=== PATIENT | male | born 1970 | race Caucasian/White ===

== ENCOUNTER 2018-05-29 20:19 | Observation (INO) | payer OTHER ==
--- OUTSIDE RECORDS SUMMARY | 2018-05-29 20:44 | XMS REPORT ---
:1970 External Reference #:[id number] Author Organization [employer] Address [address] [place] [address] Phone [phone] Care Team Providers Name Role Phone Jacobo Elkins MD Primary Care Physician Unavailable Payers Type Date Identification Numbers Payment Provider Subscriber Commercial Expires: Policy Number: [id number] [employer] Reji Ailyn David 2018 Medicaid PayID: [id number] [address] [address] [place] [address] Commercial Policy Number: [id number] [employer] Reji Robertson David PayID: [id number] [address] [place] [address] Problems Date Description Provider Status Onset: 09/10/2010 Ulcerative colitis Jacobo Elkins M.D.,FACP Active Onset: 09/10/2010 Cobalamin deficiency Jacobo Elkins M.D.,FACCherelle Active Onset: 09/10/2010 Migraine with typical aura Jacobo Elkins M.D.,FACCherelle Active Onset: 05/23/2018 Knee pain Lamont Berrios M.D. Active Onset: 10/26/2017 Difficulty breathing Lamont Berrios M.D. Active Onset: 10/26/2017 Shoulder joint pain Lamont Berrios M.D. Active Onset: 10/26/2017 Ganglion of hand Lamont Berrios M.D. Active Onset: 10/11/2017 Gastroesophageal reflux disease Lamont Berrios M.D. Active Family History Date Family Member(s) Problem(s) Comments Father Prostate cancer Mother Colon Polyps and ilium polyps First Sister Colitis w/ colectomy First Sister Crohn's Disease Social History Type Date Description Comments Marital Status Significant Other Lives With Alone Occupation Currently Working [employer] Work Status Currently Working Cigarette Use currently smokes 1/2 Pack Daily ETOH Use Drinks 1 Alcoholic Beverage Per Day Recreational Drug Use Denies Drug Use Smoking Patient is a former smoker Daily Caffeine Consumes on average 1 cup of regular coffee per day Daily Caffeine works for [employer], has excess 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 Exercise Type/Frequency Does not exercise Allergies, Adverse Reactions, Alerts Date Description Reaction Status Severity Comments 06/11/2009 Penicillins active Medications Medication Date Status Form Strength Qnty SIG Indications Ordering Provider Vitamin B12 TR Active Tablets ER 1000mcg 1 by Unknown 00 mouth every day No Active 10/12/19 Hx Unknown Medications 18 - 10/12/19 18 No Active 06/28/20 Hx Unknown Medications - 06/28/20 13 Vitamin B12 06/28/20 Hx Tablets 500mcg 1 po qd Jacobo Elkins, 10/12/19 MKrystian,FACP 18 Vitamin B12 07/27/19 Hx Tablets 500mcg 1 po qd Jacobo Elkins, 06/28/20 Concha,FACP 13 Immunizations CPT Code Status Date Vaccine Lot # [id number] Given 09/10/2010 Tdap - Tetanus/Diptheria/Acellular Pertussis [id number] Vital Signs Date Vital Result Comment 05/28/2018 Height 73 inches 6'1" Weight 170.25 lb Heart Rate 105 /min BP Systolic 110 mmHg BP Diastolic 70 mmHg Body Temperature 99.8 F O2 % BldC Oximetry 96 % BMI (Body Mass Index) 22.5 kg/m2 05/23/2018 Height 73 inches 6'1" Weight 177.00 lb Heart Rate 80 /min BP Systolic Sitting 115 mmHg BP Diastolic Sitting 70 mmHg O2 % BldC Oximetry 96 % BMI (Body Mass Index) 23.3 kg/m2 01/08/2018 Height 73 inches 6'1" Weight 175.00 lb BP Systolic 110 mmHg BP Diastolic 76 mmHg Body Temperature 100.8 F BMI (Body Mass Index) 23.1 kg/m2 12/04/2017 Height 73.5 inches 6'1.50" BP Systolic 116 mmHg BP Diastolic 70 mmHg Respiratory Rate 20 /min Body Temperature 97.8 F Pain Level 3 10/26/2017 Height 73.5 inches 6'1.50" Weight 175.25 lb Heart Rate 94 /min BP Systolic 110 mmHg BP Diastolic 60 mmHg O2 % BldC Oximetry 97 % BMI (Body Mass Index) 22.8 kg/m2 10/11/2017 Height 73.5 inches 6'1.50" Weight 172.50 lb Heart Rate 82 /min BP Systolic Sitting 130 mmHg BP Diastolic Sitting 78 mmHg O2 % BldC Oximetry 98 % BMI (Body Mass Index) 22.4 kg/m2 06/28/2013 Height 73.5 inches 6'1.50" Weight 162.00 lb Heart Rate 88 /min BP Systolic Sitting 106 mmHg BP Diastolic Sitting 72 mmHg BMI (Body Mass Index) 21.1 kg/m2 09/10/2010 Height 74 inches 6'2" Weight 163.00 lb Heart Rate 68 /min BP Systolic Sitting 96 mmHg BP Diastolic Sitting 64 mmHg BMI (Body Mass Index) 20.9 kg/m2 06/11/2009 Height 74 inches 6'2" Weight 171.75 lb Heart Rate 105 /min BP Systolic Sitting 117 mmHg BP Diastolic Sitting 70 mmHg Body Temperature 98.9 F BMI (Body Mass Index) 22.0 kg/m2 Results Test Date Test Result H/L Range Note Vitamin B12 And Folate Serum 05/23/2018 Vitamin B12 180 pg/mL 180-914 1 Folic Acid (Folate) 6.70 ng/mL >3.99 Order 12/05/2017 PFT <pending> W/Bronchodilator,Spirometry,Volumes Laboratory 10/23/2017 [place] Pylori Antigen- Stool Negative Negative 2 test finding Lipid Profile 10/20/2017 Triglycerides 62 mg/dL 3 (Trig/Chol/HD L) Cholesterol 163 mg/dL 4 HDL Cholesterol 73.3 mg/dL 5 LDL Cholesterol 77 mg/dL 6 Comp Metabolic Panel 10/20/2017 Sodium 142 mmol/L 139-145 Potassium 4.3 mmol/L 3.5-5.0 Chloride 105 mmol/L 101-111 Co2 Carbon Dioxide 30 mmol/L 22-32 Anion Gap 7 mmol/L 2-11 Glucose 84 mg/dL 70-100 Blood Urea Nitrogen 10 mg/dL 6-24 Creatinine 0.98 mg/dL 0.67-1.17 BUN/Creatinine Ratio 10.2 8-20 Calcium 10.1 mg/dL 8.6-10.3 Total Protein 6.7 g/dL 6.4-8.9 Albumin 4.5 g/dL 3.2-5.2 Globulin 2.2 g/dL 2-4 Albumin/Globulin Ratio 2.0 1-3 Total Bilirubin 0.60 mg/dL 0.2-1.0 Alkaline Phosphatase 106 U/L High 34-104 Alt 17 U/L 7-52 Ast 16 U/L 13-39 Egfr Non- 82.0 >60 Egfr 105.4 >60 7 Laboratory test finding 10/20/2017 PSA Screening 0.471 ng/mL 0-4.000 8 Folic Acid (Folate) 9.14 ng/mL >3.99 Vitamin B12 295 pg/mL 180-914 9 Lipid Profile (Trig/Chol/HDL) 07/23/2013 Triglycerides 109 mg/dL 40-200 Cholesterol 211 mg/dL High Less than 200 HDL Cholesterol 109 mg/dL High 40-60 10 Cholesterol/HDL Ratio 1.9 Average 1-4.44 LDL Cholesterol 80.2 Less Than 100 11 Laboratory test finding 07/23/2013 Glucose 79 mg/dL 70-100 12 Vitamin B12 And Folate Serum 07/23/2013 Vitamin B12 182 pg/mL 180-914 13 Folate 14.0 ng/mL 2-16 14 CBC Auto Diff 07/23/2013 White Blood Count 5.2 10^3/uL 4.8-10.8 Red Blood Count 4.74 10^6/uL 4.0-5.4 Hemoglobin 15.4 g/dL 14.0-18.0 Hematocrit 45 % 42-52 Mean Corpuscular Volume 96 fL High 80-94 Mean Corpuscular Hemoglobin 33 pg High 27-31 Mean Corpuscular HGB Conc 34 g/dL 31-36 Red Cell Distribution Width 14 % 10.5-15 Platelet Count 284 10^3/uL 150-450 Mean Platelet Volume 8 um3 7.4-10.4 Abs Neutrophils 1.9 10^3/uL 1.5-7.7 Abs Lymphocytes 2.5 10^3/uL 1.0-4.8 Abs Monocytes 0.6 10^3/uL 0-0.8 Abs Eosinophils 0.1 10^3/uL 0-0.6 Abs Basophils 0.1 10^3/uL 0-0.2 Abs Nucleated RBC 0 10^3/uL Granulocyte % 36.2 % Low 38-83 Lymphocyte % 47.7 % High 25-47 Monocyte % 11.4 % High 1-9 Eosinophil % 2.5 % 0-6 Basophil % 2.2 % High 0-2 Nucleated Red Blood Cells % 0.1 Cell Morphology 07/23/2013 RBC Morphology Normal Normal Vitamin B12 And Folate Serum 07/22/2010 Vitamin B12 132 pg/mL Low 180-914 Folic Acid 9.6 NG/ML 2-16 CBC With Electronic Diff 07/22/2010 White Blood Count 4.6 CUMM Low 4.8- 10.8 Red Cell Count 4.53 CUMM Low 4.6-6.2 Hemoglobin 14.9 g/dL 14.0-18.0 Hematocrit 43 % 42-52 Mean Corpuscular Volume 96 um3 High 80-94 Mean Corpuscular Hemoglob 33 pg High 27-31 Mean Corpuscular HGB Cone 35 g/dL 32-36 Redcell Distribution WDTH 14 % 10.5-15 Platelet Count 291 CUMM 150-450 Mean Platelet Volume 7.1 um3 Low 7.4-10.4 Gran % 43.9 % 38-83 Lymph % 43.1 % 25-47 Mononuclear % 10.2 % High 1-9 Eosinophil % 1.7 % 0-6 Basophil % 1.1 % 0-2 Abs Lymphs 2.0 1.0-4.8 Abs Mononuclear 0.5 0-0.8 Absolute Neutrophil Count 2.0 1.5-7.7 Abs Eosinophils 0.1 0-0.6 Abs Basophils 0 0-0.2 Lipid Profile (Trig/Chol/HDL) 07/22/2010 Triglyceride 23 mg/dL Low 40-200 Cholesterol 195 mg/dL Less Than 200 15 High Density Lipoprotein 115 mg/dL High 40-60 16 Cholesterol/HDL Ratio 1.70 AVERAGE 1-4.97 Low Density Lipoprotein 75 mg/dL Less Than 100 17 Comp Metabolic Panel 07/22/2010 Sodium 138 mmol/L 135-145 Potassium 4.6 mmol/L 3.5-5.0 Chloride 103 mmol/L 101-111 Co2 (Carbon Dioxide) 30.0 mmol/L 22-32 Anion Gap 5.0 mmol/L 2-11 18 Glucose 86 mg/dL 70-100 BUN 14 mg/dL 6-24 Creatinine 0.90 mg/dL 0.50-1.40 One Over Creatinine 1.10 BUN/Creatinine Ratio 15.6 8-20 Calcium 9.7 mg/dL 8.1-9.9 Total Protein 6.5 GM/DL 6.2-8.1 Albumin 4.3 GM/DL 3.6-5.4 Globulin 2.2 GM/DL 2-4 Albumin/Globulin Ratio 2.0 1-3 Bilirubin Total 0.9 mg/dL 0.4-1.5 19 Alkaline Phosphatase 116 U/L 39-117 Alt (SGPT) 22 U/L 17-63 Ast (Sgot) 23 U/L 12-42 eGFR Non- 99.8 > 60 eGFR 120.8 > [address] Rivera's Lab Panel 07/22/2010 TSH 1.02 MIU/ML 0.34-5.60 Surgical Pathology 05/07/2010 Surgical Pathology 21 <SEE NOTE> Basic Metabolic Panel 07/27/2009 Sodium 138 mmol/L 135-145 Potassium 4.7 mmol/L 3.5-5.0 Chloride 104 mmol/L 101-111 Co2 (Carbon Dioxide) 29.0 mmol/L 22-32 Anion Gap 5.0 mmol/L 2-11 22 Glucose 86 mg/dL 70-100 23 BUN 11 mg/dL 6-24 Creatinine 0.93 mg/dL 0.50-1.40 One Over Creatinine 1.00 BUN/Creatinine Ratio 11.8 8-20 Calcium 9.8 mg/dL 8.1-9.9 24 eGFR Non- 96.6 > 60 eGFR 116.9 > 60 25 Lipid Profile (Trig/Chol/HDL) 07/27/2009 Triglyceride 59 mg/dL 40-200 Cholesterol 176 mg/dL Less Than 200 26 High Density Lipoprotein 78 mg/dL High 40-60 27 Cholesterol/HDL Ratio 2.26 AVERAGE 1-4.97 Low Density Lipoprotein 86 mg/dL Less Than 100 28 1 Normal Range 180 to 914 Indeterminate Range 145 to 180 Deficient Range <145 2 Test Performed by: [address] [id number] 3 Desirable: <150 Borderline High: 150-199 High: 200-499 Very High: >500 4 Desirable: <200 Borderline High: 200-239 High: >239 5 Low: <40 Desirable: 40-60 High: >60 6 Desirable: <100 Near Optimal: 100-129 Borderline High: 130-159 High: 160-189 Very High: >189 7 Because ethnic data is not always readily available, this report includes an eGFR for both -Americans and non- Americans. The National Kidney Disease Education Program (NKDEP) does not endorse the use of the MDRD equation for patients that are not between the ages of 18 and 70, are , have extremes of body size, muscle mass, or nutritional status, or are non- or non-. According to the National Kidney Foundation, irrespective of diagnosis, the stage of the disease is based on the level of kidney function: Stage Description GFR(mL/min/1.73 m(2)) 1 Kidney damage with normal or decreased GFR 90 2 Kidney damage with mild decrease in GFR 60-89 3 Moderate decrease in GFR 30-59 4 Severe decrease in GFR 15-29 5 Kidney failure <15 (or dialysis) 8 Serum levels of PSA measured using the [employer] DXI Hybritech immunoassay should not be interpreted as absolute evidence of the presence or absence of disease. The PSA value should be used in conjunction with other pertinent clinical diagnostic procedures. A PSA value in the range of 0.1 to 0.6 ng/ml is indeterminate if being used as an indicator of recurrent or residual disease. The values obtained with different assay methods or kits cannot be used interchangeably. 9 Normal Range 180 to 914 Indeterminate Range 145 to 180 Deficient Range <145 10 HDL Interpretation: Undesirable: High Risk: Less than 40 mg/dL Desirable: Low Risk: Greater than 60 mg/dL 11 LDL Interpretation: Low Risk Optimal Level: LDL Less than 100 mg/dL Near or Above Optimal: LDL 100-129 mg/dL Borderline High Risk: LDL 130-159 mg/dL High Risk: LDL 160-189 mg/dL Very High Risk: LDL Greater than 189 mg/dL 12 FASTING 13 FASTING 14 FASTING 15 CHOLESTEROL INTERPRETATION: Desirable: Less than 200 MG/DL Borderline-High Risk: 200-239 MG/DL High-Risk: 240 MG/DL and over 16 HDL INTERPRETATION: Undesirable: High Risk: Less than 40 MG/DL Desirable: Low Risk: Greater than 60 MG/DL 17 LDL INTERPRETATION: Low Risk Optimal Level: LDL Less than 100 MG/DL Near or Above Optimal: LDL 100-129 MG/DL Borderline High Risk: LDL 130-159 MG/DL High Risk: LDL 160-189 MG/DL Very High Risk: LDL Greater than 189 MG/DL 18 Anion gap measurement may be of limited value in the presence of any alkalosis, especially in a combined acid base disorder. . 19 A metabolite of Naproxen, O-desmethylnaproxen, has been shown to interfere with the Jendrassik-Odon method for measuring total bilirubin. Samples from patients who have taken Naproxen have shown spurious elevation in total bilirubin levels. 20 Because ethnic data is not always readily available, this report includes an eGFR for both -Americans and non- Americans. The National Kidney Disease Education Program (NKDEP) does not endorse the use of the MDRD equation for patients that are not between the ages of 18 and 70, are , have extremes of body size, muscle mass, or nutritional status, or are non- or non-. According to the National Kidney Foundation, irrespective of diagnosis, the stage of the disease is based on the level of kidney function: Stage Description GFR(mL/min/1.73 m(2)) 1 Kidney damage with normal or decreased GFR 90 2 Kidney damage with mild decrease in GFR 60-89 3 Moderate decrease in GFR 30-59 4 Severe decrease in GFR 15-29 5 Kidney failure <15 (or dialysis) 21 ---- RUN DATE: 05/11/10 [facility] NMI LIVE PAGE 1 RUN TIME: 1504 Specimen Inquiry RUN USER: INTERFACE -- Name: Jonah HERNANDEZ Status: REG REF Re05/07/10 Age/Sex: 39/M Unit#: [id number] [facility] -- Specimen: [id number] SOUT Spec Date: 05/07/[address]: Sebastian alvarez MD Spec Type: SURGICAL P Received: 05/10/10-1011 Copies to: Jacobo fitch MD SPECIMEN RECTAL BIOPSY HISTORY CLINICAL INFORMATION: Hematochezia GROSS DESCRIPTION The specimen is received in formalin labelled JonahJoe Ej David, Rectal Biopsy, and consists of multiple sanchez, soft tissue fragments measuring 0.5 x 0.2 x 0.2 cm. in aggregate. Submitted entirely, one cassette. DIAGNOSIS Colon, rectum, biopsy: A. Rectal mucosa with acute colitis with focal cryptitis and mild architectural disorder. B. A single minute insipient crypt abscess identified. C. No dysplasia noted. COMMENT The findings are not entirely specific but may be compatible with early chronic inflammatory bowel disease. Correlation with clinical and colonoscopic findings is suggested. Signed Electronically by: MORENO GUSMAN MD 05/11/10 1454 -- -- DEPARTMENT OF PATHOLOGY, [address] [place] [address] [facility] Permit #[id number] Moreno Gusman M.D. Director Jerrell Major M.D. Band Tacker Dir rohini -- 22 Anion gap measurement may be of limited value in the presence of any alkalosis, especially in a combined acid base disorder. . 23 Note change in reference range as of 03/13/08. The change was based on recommendations from the [place] [employer]. 24 Please note change in reference range effective 07 . 25 Because ethnic data is not always readily available, this report includes an eGFR for both -Americans and non- Americans. The National Kidney Disease Education Program (NKDEP) does not endorse the use of the MDRD equation for patients that are not between the ages of 18 and 70, are , have extremes of body size, muscle mass, or nutritional status, or are non- or non-. According to the National Kidney Foundation, irrespective of diagnosis, the stage of the disease is based on the level of kidney function: Stage Description GFR(mL/min/1.73 m(2)) 1 Kidney damage with normal or decreased GFR 90 2 Kidney damage with mild decrease in GFR 60-89 3 Moderate decrease in GFR 30-59 4 Severe decrease in GFR 15-29 5 Kidney failure <15 (or dialysis) 26 CHOLESTEROL INTERPRETATION: Desirable: Less than 200 MG/DL Borderline-High Risk: 200-239 MG/DL High-Risk: 240 MG/DL and over 27 HDL INTERPRETATION: Undesirable: High Risk: Less than 40 MG/DL Desirable: Low Risk: Greater than 60 MG/DL 28 LDL INTERPRETATION: Low Risk Optimal Level: LDL Less than 100 MG/DL Near or Above Optimal: LDL 100-129 MG/DL Borderline High Risk: LDL 130-159 MG/DL High Risk: LDL 160-189 MG/DL Very High Risk: LDL Greater than 189 MG/DL Procedures Date CPT Code Description Status 12/04/2017 93823 Plethysmography Determination Lung Volumes & Per Airway Completed Resist 12/04/2017 21297 Pulmonary Function><Bronchodil Completed 05/07/2010 Colonoscopy Completed Encounters Type Date Location Provider CPT E/M Dx Office Visit 01/08/2018 [facility] Tiffany Shay M.D. 26206 M25.511 10:15a Of [place] S46.011A Office Visit 12/04/2017 11:00a [facility] Tiffany Shay M.D. 37114 M25.511 VirgilioMCam S46.011A Office Visit 10/26/2017 11:20a [facility] Internal Lamont Berrios, 79163 M67.442 Medicine - [place] Titi Kern M25.511 R06.00 Office Visit 10/11/2017 2:00p [facility] Internal Medicine Lamont Berrios, 77463 D51.1 - Kiersten Kern K21.9 Z00.01 Z13.1 Z13.220 Z12.5 F17.210 Z00.00 Office Visit 06/28/2013 2:00p [facility] Internal Medicine Jacobo Elkins, 94360 V70.0 - Kiersten Kern,FACP 281.1 Office Visit 09/10/2010 2:00p DO Not Use Hand Upper And Bottom Lacer AT Jacobo Elkins, 44644 V70.0 Ferny Kern,FACP 556.9 281.1 346.00 Office Visit 06/11/2009 10:30a DO Not Use [place] [address] V77.91 [place] 780.97 Plan of Care Future Appointment(s):06/05/2019 2:00 pm - Lamont Berrios M.D. at [facility] Internal Medicine - Ascnriwwp52/05/2018 - Lamont Berrios M.D.J06.9 Acute upper respiratory infection, unspecifiedComments:Force fluids and get extra restIf the symptoms doesn't improve or if it gets worse to call.
--- OUTSIDE RECORDS SUMMARY | 2018-05-29 20:44 | XMS REPORT ---
:1970 External Reference #:[id number] Author Organization [employer] Address [address] [place] [address] Phone [phone] Care Team Providers Name Role Phone Jacobo Elkins MD Primary Care Physician Unavailable Payers Type Date Identification Numbers Payment Provider Subscriber Commercial Expires: Policy Number: [id number] Rivera[employer] Reji Ailyn David 2018 Medicaid PayID: [id number] [address] [address] [place] [address] Commercial Policy Number: [id number] [employer] Reji Robertson David PayID: [id number] [address] [place] [address] Problems Date Description Provider Status Onset: 09/10/2010 Ulcerative colitis Jacobo Elkins M.D.,FACP Active Onset: 09/10/2010 Cobalamin deficiency Jacobo Elkins M.D.,FACCherelle Active Onset: 09/10/2010 Migraine with typical aura Jacobo Elkins M.D.,FACP Active Onset: 05/23/2018 Knee pain Lamont Berrios [...] coffee per day Daily Caffeine 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 for [employer], 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 excess 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 Exercise Type/Frequency [...] 500mcg 1 po qd Jacobo Elkins, 10/12/19 Concha,FACP 18 Vitamin B12 07/27/19 Hx Tablets 500mcg 1 po qd Jacobo Elkins, 06/28/20 Concha,FACP 13 Immunizations CPT Code Status Date Vaccine Lot # [id number] Given 09/10/2010 Tdap - Tetanus/Diptheria/Acellular Pertussis [id number] Vital Signs Date Vital Result Comment 05/23/2018 Height 73 inches 6'1" Weight 177.00 [...] Test Date Test Result H/L Range Note Order 12/05/2017 PFT <pending> W/Bronchodilator,Spirome try,Volumes Laboratory test 10/23/2017 [place] Pylori Antigen- Negative Negative 1 finding Stool Lipid Profile 10/20/2017 Triglycerides 62 mg/dL 2 (Trig/Chol/HDL) Cholesterol 163 mg/dL 3 HDL Cholesterol 73.3 mg/dL 4 LDL Cholesterol 77 mg/dL 5 Comp Metabolic Panel 10/20/2017 Sodium 142 mmol/L [...] Egfr Non- 82.0 >60 Egfr 105.4 >60 6 Laboratory test finding 10/20/2017 PSA Screening 0.471 ng/mL 0-4.000 7 Folic Acid (Folate) 9.14 ng/mL >3.99 Vitamin B12 295 pg/mL 180-914 8 Lipid Profile (Trig/Chol/HDL) 07/23/2013 Triglycerides 109 mg/dL 40-200 Cholesterol 211 mg/dL High Less than 200 HDL Cholesterol 109 mg/dL High 40-60 9 Cholesterol/HDL Ratio 1.9 Average 1-4.44 LDL Cholesterol 80.2 Less Than 100 10 Laboratory test finding 07/23/2013 Glucose 79 mg/dL 70-100 11 Vitamin B12 And Folate Serum 07/23/2013 Vitamin B12 182 pg/mL 180-914 12 Folate 14.0 ng/mL 2-16 13 CBC Auto Diff 07/23/2013 White Blood Count [...] 40-200 Cholesterol 195 mg/dL Less Than 200 14 High Density Lipoprotein 115 mg/dL High 40-60 15 Cholesterol/HDL Ratio 1.70 AVERAGE 1-4.97 Low Density Lipoprotein 75 mg/dL Less Than 100 16 Comp Metabolic Panel 07/22/2010 Sodium 138 mmol/L 135-145 Potassium 4.6 mmol/L 3.5-5.0 Chloride 103 mmol/L 101-111 Co2 (Carbon Dioxide) 30.0 mmol/L 22-32 Anion Gap 5.0 mmol/L 2-11 17 Glucose 86 mg/dL 70-100 BUN 14 mg/dL 6-24 Creatinine 0.90 mg/dL 0.50-1.40 One Over Creatinine 1.10 BUN/Creatinine Ratio 15.6 8-20 Calcium 9.7 mg/dL 8.1-9.9 Total Protein 6.5 GM/DL 6.2-8.1 Albumin 4.3 GM/DL 3.6-5.4 Globulin 2.2 GM/DL 2-4 Albumin/Globulin Ratio 2.0 1-3 Bilirubin Total 0.9 mg/dL 0.4-1.5 18 Alkaline Phosphatase 116 U/L 39-117 Alt (SGPT) 22 U/L 17-63 Ast (Sgot) 23 U/L 12-42 eGFR Non- 99.8 > 60 eGFR 120.8 > [address] Rivera's Lab Panel 07/22/2010 TSH 1.02 MIU/ML 0.34-5.60 Surgical Pathology 05/07/2010 Surgical Pathology 20 <SEE NOTE> Basic Metabolic Panel 07/27/2009 Sodium 138 mmol/L 135-145 Potassium 4.7 mmol/L 3.5-5.0 Chloride 104 mmol/L 101-111 Co2 (Carbon Dioxide) 29.0 mmol/L 22-32 Anion Gap 5.0 mmol/L 2-11 21 Glucose 86 mg/dL 70-100 22 BUN 11 mg/dL 6-24 Creatinine 0.93 mg/dL 0.50-1.40 One Over Creatinine 1.00 BUN/Creatinine Ratio 11.8 8-20 Calcium 9.8 mg/dL 8.1-9.9 23 eGFR Non- 96.6 > 60 eGFR 116.9 > 60 24 Lipid Profile (Trig/Chol/HDL) 07/27/2009 Triglyceride 59 mg/dL 40-200 Cholesterol 176 mg/dL Less Than 200 25 High Density Lipoprotein 78 mg/dL High 40-60 26 Cholesterol/HDL Ratio 2.26 AVERAGE 1-4.97 Low Density Lipoprotein 86 mg/dL Less Than 100 27 1 Test Performed by: [address] [id number] 2 Desirable: <150 Borderline High: 150-199 High: 200-499 Very High: >500 3 Desirable: <200 Borderline High: 200-239 High: >239 4 Low: <40 Desirable: 40-60 High: >60 5 Desirable: <100 Near Optimal: 100-129 Borderline High: 130-159 High: 160-189 Very High: >189 6 Because ethnic data is not always readily [...] 15-29 5 Kidney failure <15 (or dialysis) 7 Serum levels of PSA measured using the [employer] DXI Hybritech immunoassay should not be interpreted [...] methods or kits cannot be used interchangeably. 8 Normal Range 180 to 914 Indeterminate Range 145 to 180 Deficient Range <145 9 HDL Interpretation: Undesirable: High Risk: Less than 40 mg/dL Desirable: Low Risk: Greater than 60 mg/dL 10 LDL Interpretation: Low Risk Optimal Level: LDL Less than 100 mg/dL Near or Above Optimal: LDL 100-129 mg/dL Borderline High Risk: LDL 130-159 mg/dL High Risk: LDL 160-189 mg/dL Very High Risk: LDL Greater than 189 mg/dL 11 FASTING 12 FASTING 13 FASTING 14 CHOLESTEROL INTERPRETATION: Desirable: Less than 200 MG/DL Borderline-High Risk: 200-239 MG/DL High-Risk: 240 MG/DL and over 15 HDL INTERPRETATION: Undesirable: High Risk: Less than 40 MG/DL Desirable: Low Risk: Greater than 60 MG/DL 16 LDL INTERPRETATION: Low Risk Optimal Level: LDL Less than 100 MG/DL Near or Above Optimal: LDL 100-129 MG/DL Borderline High Risk: LDL 130-159 MG/DL High Risk: LDL 160-189 MG/DL Very High Risk: LDL Greater than 189 MG/DL 17 Anion gap measurement may be of limited value in the presence of any alkalosis, especially in a combined acid base disorder. . 18 A metabolite of Naproxen, O-desmethylnaproxen, has been shown to interfere with the Jenblairik-Pranay method for measuring total bilirubin. Samples from patients who have taken Naproxen have shown spurious elevation in total bilirubin levels. 19 Because ethnic data is not always readily [...] 15-29 5 Kidney failure <15 (or dialysis) 20 ---- RUN DATE: 05/11/10 [facility] NMI LIVE PAGE 1 RUN TIME: 1504 Specimen Inquiry RUN USER: INTERFACE -- Name: Jonah HERNANDEZ Accregis#: [id number] Status: REG REF Re05/07/10 Age/Sex: 39/M Unit#: [id number] Location: [facility] : 70 -- Specimen: [id number] Spec Date: 05/07/[address]: Sebastian alvarez MD Spec Type: SURGICAL P Received: 05/10/10-1011 Copies to: Jacobo fitch MD SPECIMEN RECTAL BIOPSY HISTORY CLINICAL INFORMATION: Hematochezia GROSS DESCRIPTION The specimen is received in formalin labelled Joaquin Hernandez, Rectal Biopsy, and consists of multiple sanchez, [...] 05/11/10 1454 -- -- DEPARTMENT OF PATHOLOGY, [address] [place] [address] [facility] Permit #[id number] Moreno Gusman M.D. Director Jerrell Major M.D. Sod Stripper rohini -- 21 Anion gap measurement may be of limited value in the presence of any alkalosis, especially in a combined acid base disorder. . 22 Note change in reference range as of 03/13/08. The change was based on recommendations from the [employer]. 23 Please note change in reference range effective 07 . 24 Because ethnic data is not always readily [...] 15-29 5 Kidney failure <15 (or dialysis) 25 CHOLESTEROL INTERPRETATION: Desirable: Less than 200 MG/DL Borderline-High Risk: 200-239 MG/DL High-Risk: 240 MG/DL and over 26 HDL INTERPRETATION: Undesirable: High Risk: Less than 40 MG/DL Desirable: Low Risk: Greater than 60 MG/DL 27 LDL INTERPRETATION: Low Risk Optimal Level: LDL Less than 100 MG/DL Near or Above Optimal: LDL 100-129 MG/DL Borderline High Risk: LDL 130-159 MG/DL High Risk: LDL 160-189 MG/DL Very High Risk: LDL Greater than 189 MG/DL Procedures Date CPT Code Description Status 12/04/2017 44761 Plethysmography Determination Lung Volumes & Per Airway Completed Resist 12/04/2017 01467 Pulmonary Function><Bronchodil Completed 05/07/2010 Colonoscopy Completed Encounters Type Date Location Provider CPT E/M Dx Office Visit 01/08/2018 [facility] Tiffany Shay M.D. 43542 M25.511 10:15a Of [place] S46.011A Office Visit 12/04/2017 11:00a [facility] Tiffany Shay M.D. 49557 M25.511 C.MCam S46.011A Office Visit 10/26/2017 11:20a [facility] Lamont Berrios, 24516 M67.442 Medicine - [place] Concha M25.511 R06.00 Office Visit 10/11/2017 2:00p [facility] Medicine Lamont Berrios, 17941 D51.1 - Kiersten Kern K21.9 Z00.01 Z13.1 Z13.220 Z12.5 F17.210 Z00.00 Office Visit 06/28/2013 2:00p [facility] Medicine Jacobo Elkins, 33083 V70.0 - Kiersten Kern,FACP 281.1 Office Visit 09/10/2010 2:00p DO Not Use [employer] [facility] Jacobo Elkins, 69209 V70.0 Ferny Kern,FACP 556.9 281.1 346.00 Office Visit 06/11/2009 10:30a DO Not Use [employer] [place] [address] V77.91 [place] 780.97 Plan of Care Future Appointment(s):06/05/2019 2:00 pm - Lamont Berrios M.D. at [facility] Medicine [facility]05/23/2018 - Lamont Berrios M.D.D51.1 Vit B12 defic anemia d/t slctv vit B12 malabsorp w proteinFollow up:0pcaxH15.990 Exercise induced cuilooknzeflR45.561 Pain in right kneeComments:If pain is worse to consider autoimmune work up.
--- NOTE | 2018-05-29 21:13 | ED ---
Headache - HPI Summary HPI Summary: This patient is a 47 year old M presenting to [facility] upon referral from his PCP with a chief complaint of intermittent frontal and right-sided SUAREZ since 5 days ago. Patient notes he saw his PCP 1 day ago and was diagnosed with a viral infection. The patient rates the pain 8/10 in severity. Symptoms aggravated by bright lights. Symptoms alleviated by nothing. Patient reports fever and neck pain since 4 days ago. Patient reports sore throat and sensitivity to light since 1 day ago. Patient notes very swollen tonsils 3 weeks ago that has resolved and a sinus infection without phlegm 2 weeks ago that resolved 1 week ago. Patient did not see a doctor for these symptoms. Patient denies nausea, vomiting, or congestion. Pt has hx of ulcerative colitis. - History Of Current Complaint Chief Complaint: EDHeadache Stated Complaint: FEVER/HEADACHE/NECK PAIN Time Seen by Provider: 05/29/18 21:01 Hx Obtained From: Patient Onset/Duration: Gradual Onset, Started days ago - 4 days, Still Present, Worse Since - 1 day ago Initially Headache Was: Mild Currently Pain Is: Current Pain Scale(0-10)= - 8 Timing: Intermittent, Lasting: Location of Headache: Frontal Aggravating Factor: Bright Lights Allevating Factors: Nothing Associated Signs And Symptoms: Fever, Neck Pain - Allergies/Home Medications Allergies/Adverse Reactions: Allergies Allergy/AdvReac Type Severity Reaction Status Date / Time Penicillins Allergy Unknown Verified 05/29/18 20:25 Reaction Details Home Medications: Home Medications NK [No Home Medications Reported] 05/29/18 [History Confirmed 05/29/18] PMH/Surg Hx/FS Hx/Imm Hx GI History: Reports: Hx Ulcer - ulcerative colitis Opthamlomology History: Denies: Hx Legally Blind EENT History: Denies: Hx Deafness - Surgical History Surgery Procedure, Year, and Place: none reported Infectious Disease History: No Infectious Disease History: Denies: Traveled Outside the [place] in Last 30 Days - Family History Known Family History: Negative: Diabetes - Social History Lives: With Family Review of Systems Positive: Fever Positive: Photophobia Positive: Sore Throat Negative: Vomiting, Nausea Musculoskeletal: Other - bilateral neck pain Positive: Headache All Other Systems Reviewed And Are Negative: Yes Physical Exam - Summary Physical Exam Summary: VITAL SIGNS: Reviewed. GENERAL: Patient is a well-developed and nourished MALE who is lying comfortable in the stretcher. Patient is not in any acute respiratory distress. HEAD AND FACE: No signs of trauma. No ecchymosis, hematomas or skull depressions. No sinus tenderness. EYES: PERRLA, EOMI x 2, No injected conjunctiva, no nystagmus. EARS: Hearing grossly intact. Ear canals and tympanic membranes are within normal limits. MOUTH: Pharyngeal erythema with no exudate NECK: Supple, trachea is midline, no adenopathy, no JVD, no carotid bruit, no c- spine tenderness. Nuchal rigidity. CHEST: Symmetric, no tenderness at palpation LUNGS: Clear to auscultation bilaterally. No wheezing or crackles. CVS: Regular rate and rhythm, S1 and S2 present, no murmurs or gallops appreciated. ABDOMEN: Soft, non-tender. No signs of distention. No rebound no guarding, and no masses palpated. Bowel sounds are normal. EXTREMITIES: FROM in all major joints, no edema, no cyanosis or clubbing. NEURO: Alert and oriented x 3. No acute neurological deficits. Speech is normal and follows commands. SKIN: Dry and warm Triage Information Reviewed: Yes Vital Signs On Initial Exam: Initial Vitals Temp Pulse Resp BP Pulse Ox 98.9 F 97 18 127/81 95 05/29/18 20:20 05/29/18 20:20 05/29/18 20:20 05/29/18 20:20 05/29/18 20:20 Vital Signs Reviewed: Yes Procedures - Lumbar Puncture Sitting Procedural Sedation: none Position: Sitting Aseptic Technique: Local Anesthesia Anesthesia Used: 2.0% Lido - with epi Spinal Needle Used: 20 Gauge Lumbar Puncture Note: Lumbar puncture performed while patient was sitting at the L3-L4. 20 gauge spinal needle was used. 2% lidocaine with epi was used for local anesthesia. Diagnostics - Vital Signs Vital Signs Temp Pulse Resp BP Pulse Ox 05/29/18 20:20 98.9 F 97 18 127/81 95 - Laboratory Result Diagrams: 05/29/18 21:42 05/29/18 21:42 Lab Statement: Any lab studies that have been ordered have been reviewed, and results considered in the medical decision making process. - Radiology CXR Radiology Interpretation Completed By: ED Physician - Dr. Paula, pending official report Summary of Radiographic Findings: No acute process Re-Evaluation - Re-Evaluation 1st re-eval Re-Evaluation Time: 23:53 Change: Improved Comment: Discussed lab results with patient. Headache Course/Dx - Course Course Of Treatment: This patient is a 47 year old M reporting intermittent SUAREZ since 5 days ago and fever and neck pain since 4 days ago. Lumbar puncture performed while patient was sitting at the L3-L4. 20 gauge spinal needle and 2% lidocaine with epi used. CXR reveals no acute process. Test results with no significant abnormalities except for elevated WBC in CSF. In the ED course the patient was given IV fluids, Toradol, Benadryl, Reglan, and Tylenol. Hospitalist was paged at 23:48. We discussed patient care with Dr. Watters, hospitalist, at 00:14 and she will see the patient in the ED. Dr. Watters agreed to admit the [place] [facility] [place] 2:[place]. Patient will be admitted [place] [facility]. The patient is agreeable with this plan. 40 minutes of critical care time were performed. CSF analysis did show leukocytosis with predominance of neutrophils. However patient did have a normal glucose in the CSF. Gram stain is negative so far. The fact that patient does have neutrophils predominance. Will be treated as bacterial meningitis. Patient did receive IV ceftriaxone and IV vancomycin in the emergency room. Patient is not ill looking, no systemic leukocytosis. Patient will be admitted for IV antibiotics till CSF culture is back. - Diagnoses Provider Diagnoses: Meningitis - Physician Notifications Discussed Care Of Patient With: Andie Watters Time Discussed With Above Provider: 00:14 Instructed by Provider To: Will See In ED - Critical Care Time Critical Care Time: 30-74 min - 40 minutes Discharge - Sign-Out/Discharge Documenting (check all that apply): [place]art[place] [facility] [place]charge Plan Condition: Stable Disposition: ADMITTED TO [facility] - Billing Disposition and Condition Condition: STABLE Disposition: Admitted to [facility] - Attestation Statements Document Initiated by Scribe: Yes Documenting Scribe: Janene Campuzano Provider For Whom Matthew is Documenting (Include Credential): Osmar Paula MD Scribsegundo Attestation: Janene Bahena scribed for Osmar Paula MD on 05/30/18 at 0324. Scribe Documentation Reviewed: Yes Provider Attestation: The documentation as recorded by the Janene hernandez accurately reflects the service I personally performed and the decisions made by me, Osmar Paula MD
[2018-05-29] MEDS ORDERED: Ketorolac INJ* 30 MG/ML 1 ML VIAL IV PUSH ONE (21:34)
[2018-05-29] MEDS ORDERED: Acetaminophen TAB* 325 MG PO ONE (21:34)
[2018-05-29] MEDS ORDERED: diPHENhydraMINE PO* 25 MG PO ONE (21:35)
[2018-05-29] MEDS ORDERED: Metoclopramide IV* 5 MG/ML 2 ML VIAL IV SLOW PU ONE (21:35)
[2018-05-29] MEDS ORDERED: NS 0.9% 1000 ML* 2,000 ML IV ONE (21:35)
[2018-05-29 21:56] LABS: ABS Basophils 0 10^3/ul (0-0.2); ABS Eosinophils 0 10^3/ul (0-0.6); ABS Lymphocytes 1.7 10^3/ul (1.0-4.8); ABS Monocytes 0.8 10^3/ul (0-0.8); ABS Nucleated RBC 0 10^3/ul; Eosinophil % 0.6 % (0-6); Hematocrit 46 % (42-52); Hemoglobin 15.2 g/dl (14.0-18.0); Lymphocyte % 37.3 % (25-47); Mean Corpuscular HGB Conc 34 g/dl (31-36); Mean Corpuscular Hemoglobin 31 pg (27-31); Mean Corpuscular Volume 92 fL (80-94); Mean Platelet Volume 7.9 fL (7.4-10.4); Nucleated Red Blood Cells % 0; Platelet Count 280 10^3/ul (150-450); Red Blood Count 4.97 10^6/ul (4.00-5.40); Red Cell Distribution Width 13 % (10.5-15); White Blood Count 4.5 10^3/ul (3.5-10.8)
[2018-05-29] MEDS ORDERED: Lidocaine 2% EPI 1:200000 MPF*10-20 ML VIAL ONE (21:58)
[2018-05-29 22:07] LABS: Urine Appearance Clear; Urine Blood Negative (Negative); Urine Color Straw; Urine Ketones Negative (Negative); Urine Protein Negative (Negative); Urine Specific Gravity 1.004 (1.010-1.030); Urine Urobilinogen Negative (Negative)
[2018-05-29 22:12] LABS: EGFR Non-African American 79.2 (>60)
[2018-05-29 22:22] LABS: INR 0.95 (0.77-1.02)
[2018-05-29 22:22] LABS: Body Fluid Source Cerebral Spinal
[2018-05-29] MEDS ORDERED: cefTRIAXone(*) 2 GM in NS 0.9% 100 ML* 100 ML IVPB ONE (23:47)
[2018-05-29] MEDS ORDERED: Vancomycin(*) 1,000 MG in NS 0.9% 250 ML* 250 ML IVPB ONE (23:47)
[2018-05-30] MEDS ORDERED: NS 0.9% 1000 ML* 1,000 ML IV SCH (02:15)
--- NOTE | 2018-05-30 02:36 | ADMNOTE ---
Subjective Date of Service: 05/30/18 Interval History: code status full this is admission h/p hpi this is a 47 yr old wm with hx of uri with intermittantly for 3 weeks was told by pcp yesterday to come to er if his headache is not getting better. pt started to have sore throat three weeks ago followed by intermittant sinus pressure and pain, had his symptoms got worse last weekend with fever to 101 sinus pressure and diffuse body ache. he waited until weekend passed to see his own pcp yesterday was told by his pcp that it could be just viral dz ---> if his headache is not getting better comes to er for eval. his headache was better but started to become very intense today besides high fever. unlike his headache/pain yesterday which localized on the r frontal sinus behind his r eye then radiating to his r jaw/r side of neck, his headache today is localized right above his eyebrow bilaterally. 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 has one cat at home no hx of menengitis or encephalitis prior phx none pxhs none social no cig no etoh no ivda comes from home fhx none Family History: Findings - as above Social History: Findings - as above Past Medical History: Findings - as above Review of Systems - Measurements Intake and Output: Intake and Output Last 24 Hours 05/27/18 05/28/18 05/29/18 05/30/18 06:59 06:59 06:59 06:59 Intake Total 2100 Balance 2100 Weight 170 lb Intake: IV Fluids 2100 - Review of Systems General Comments: headache frontal sinus pressure sore throat Objective Active Medications: Dexamethasone Sodium Phosphate (10 mg/ Sodium Chloride) 52.5 mls @ 210 mls/hr IVPB Q6H KERRY Stop: 06/01/18 01:59 Acyclovir Sodium 750 mg/ (Sodium Chloride) 115 mls @ 115 mls/hr IVPB Q8H KERRY Sodium Chloride (Ns 0.9% 1000 Ml*) 1,000 mls @ 125 mls/hr IV PER RATE KERRY Vital Signs - 8 hr 05/29/18 05/29/18 05/29/18 20:20 22:26 22:46 Temperature 98.9 F Pulse Rate 97 75 Respiratory 18 Rate Blood Pressure 127/81 124/77 (mmHg) O2 Sat by Pulse 95 98 Oximetry 05/29/18 05/29/18 05/29/18 22:51 22:56 23:00 Temperature Pulse Rate 73 73 Respiratory Rate Blood Pressure 126/80 (mmHg) O2 Sat by Pulse 98 99 99 Oximetry 05/29/18 23:26 Temperature Pulse Rate 78 Respiratory Rate Blood Pressure 129/76 (mmHg) O2 Sat by Pulse 96 Oximetry Oxygen Devices in Use Now: None Appearance: nad Eyes: No Scleral Icterus, PERRLA Ears/Nose/Mouth/Throat: NL Teeth, Lips, Gums, Clear Oropharnyx, Mucous Membranes Moist, - - tympanic membrane intact no abscess seen on the throat + tenderness when frontal sinus is percussed no photophobia Neck: NL Appearance and Movements; NL JVP, Trachea Midline, No Thyroid Enlargement, Masses, - - supple Respiratory: Symmetrical Chest Expansion and Respiratory Effort, Clear to Auscultation Cardiovascular: NL Sounds; No Murmurs; No JVD, RRR Abdominal: NL Sounds; No Tenderness; No Distention Extremities: No Edema, No Clubbing, Cyanosis Skin: No Rash or Ulcers Neurological: Alert and Oriented x 3, NL Sensation, NL Muscle Strength and Tone Result Diagrams: 05/30/18 05:18 05/31/18 05:24 Microbiology and Other Data: Microbiology 05/29/18 23:20 Group A Streptococcus Rapid Screen - Final Throat Specimen received for Rapid Strep A Molecular testing 05/29/18 22:28 Influenza Types A,B Antigen - Final Nasal Specimen received for Influenza A/B Molecular testing 05/29/18 22:15 CSF Gram Stain (Tube 3) - Preliminary Cerebral Spinal Fluid Assess/Plan/Problems-Billing Assessment: this is a 47 yr old wm with no hx presented to er with intense headache fever which has been since last weekend. went to see pcp yesterday but his mota was better was told if his headache is getting worse come to er for er. his wbc peripheral wbc is neg but spinal tap showed wbc of 380 with n 66 l 26 - Patient Problems (1) Bacterial encephalitis Status: Acute Code(s): G04.90 - ENCEPHALITIS AND ENCEPHALOMYELITIS, UNSPECIFIED SNOMED Code(s): 962108186 Comment: got covered with rocephin/vanco and steroid as well as acyclovir for now will need id and neuro consult in am ct with iv contrast for sinus/brain ---> will order mri of brain pending upon id /neuro input csf sent for gram stain and cx and herpes and lyme study and [facility] encephalitis protocol in am ok with pt to test for hiv and cd 4 count despite low likelihood (2) Fever Status: Acute Code(s): R50.9 - FEVER, UNSPECIFIED SNOMED Code(s): 112627162 Comment: tylenol prn
[2018-05-30] MEDS ORDERED: Vancomycin per Pharmacy* NOTE FOLLOW UP PRN (03:11)
[2018-05-30] MEDS ORDERED: Iohexol 300* (CONTRAST) 10 ML SDV IV ONE (03:18)
[2018-05-30] MEDS: ACYCLOVIR IVPB SCH ×4 (04:22→19:50)
[2018-05-30] MEDS: NS 0.9% IVPB SCH ×8 (04:22→20:54)
[2018-05-30] MEDS: DEXAMETHASONE IVPB SCH ×4 (05:26→20:54)
[2018-05-30 05:46] LABS: ABS Basophils 0.1 10^3/ul (0-0.2); ABS Eosinophils 0.1 10^3/ul (0-0.6); ABS Monocytes 0.9 10^3/ul (0-0.8); ABS Neutrophils 1.4 10^3/ul (1.5-7.7); ABS Nucleated RBC 0 10^3/ul; Eosinophil % 1.2 % (0-6); Hematocrit 40 % (42-52); Hemoglobin 13.6 g/dl (14.0-18.0); Lymphocyte % 45.4 % (25-47); Mean Corpuscular HGB Conc 34 g/dl (31-36); Mean Corpuscular Hemoglobin 31 pg (27-31); Mean Corpuscular Volume 93 fL (80-94); Mean Platelet Volume 8.2 fL (7.4-10.4); Nucleated Red Blood Cells % 0.2; Platelet Count 210 10^3/ul (150-450); Red Blood Count 4.32 10^6/ul (4.00-5.40); Red Cell Distribution Width 14 % (10.5-15); White Blood Count 4.5 10^3/ul (3.5-10.8)
[2018-05-30] MEDS: Acetaminophen TAB* 325 MG PO PRN ×2 (06:21→12:14)
[2018-05-30 06:40] LABS: EGFR Non-African American 88.2 (>60)
--- NOTE | 2018-05-30 08:34 | PN ---
Subjective Date of Service: 05/30/18 Interval History: Pt is feeling much better today. He states he has not taken tylenol in several years and wished he had taken it sooner as his headache is improved. He has had some light sensitivity with the headaches. No nausea or vomiting. Objective Active Medications: Acetaminophen (Tylenol Tab*) 650 mg PO Q4H PRN PRN Reason: PAIN Last Admin: 05/30/18 06:21 Dose: 650 mg Dexamethasone Sodium Phosphate (10 mg/ Sodium Chloride) 52.5 mls @ 210 mls/hr IVPB Q6H KERRY Stop: 06/01/18 01:59 Last Admin: 05/30/18 08:17 Dose: 210 mls/hr Acyclovir Sodium 750 mg/ (Sodium Chloride) 115 mls @ 115 mls/hr IVPB Q8H KERRY Last Admin: 05/30/18 04:22 Dose: 115 mls/hr Sodium Chloride (Ns 0.9% 1000 Ml*) 1,000 mls @ 125 mls/hr IV PER [facility] Ceftriaxone Sodium 2 gm/ (Sodium Chloride) 100 mls @ 200 mls/hr IVPB Q12H KERRY Vancomycin HCl 1,000 mg/ (Sodium Chloride) 250 mls @ 166.667 mls/hr IVPB Q8H KERRY Influenza Virus Vaccine (Fluarix *Quad* 2018-19*) 0.5 ml IM .ONCE ONE Stop: 05/30/18 09:01 Pharmacy Consult (Vancomycin Per Pharmacy*) 1 note FOLLOW UP . PRN PRN Reason: PER PROTOCOL Pharmacy Profile Note (Vancomycin Trough Check) 1 note FOLLOW UP .ENTER TIME ONE Stop: 05/31/18 08:31 Vital Signs - 8 hr 05/30/18 05/30/18 05/30/18 01:47 01:49 01:57 Temperature Pulse Rate 71 71 74 Respiratory Rate Blood Pressure 115/68 118/66 (mmHg) O2 Sat by Pulse 97 97 97 Oximetry 05/30/18 05/30/18 05/30/18 02:00 02:28 02:57 Temperature Pulse Rate 73 72 Respiratory Rate Blood Pressure 123/66 125/64 (mmHg) O2 Sat by Pulse 96 96 Oximetry 05/30/18 05/30/18 05/30/18 03:00 03:55 04:05 Temperature 99.3 F 98.2 F Pulse Rate 73 73 65 Respiratory 16 16 Rate Blood Pressure 125/64 101/54 (mmHg) O2 Sat by Pulse 94 94 99 Oximetry 05/30/18 05/30/18 07:19 07:34 Temperature 99.1 F Pulse Rate 74 Respiratory 16 14 Rate Blood Pressure 103/50 (mmHg) O2 Sat by Pulse 95 Oximetry Oxygen Devices in Use Now: None Appearance: Middle aged thin male sitting up in bed, NAD Eyes: No Scleral Icterus Ears/Nose/Mouth/Throat: Mucous Membranes Moist Respiratory: Symmetrical Chest Expansion and Respiratory Effort, Clear to Auscultation - with RLL crackles Cardiovascular: NL Sounds; No Murmurs; No JVD, RRR, No Edema Abdominal: NL Sounds; No Tenderness; No Distention Extremities: No Clubbing, Cyanosis Skin: No Nodules or Sclerosis Neurological: Alert and Oriented x 3 Result Diagrams: 05/30/18 05:18 05/30/18 05:18 Microbiology and Other Data: Microbiology 05/29/18 23:20 Group A Streptococcus Rapid Screen - Final Throat Specimen received for Rapid Strep A Molecular testing 05/29/18 22:28 Influenza Types A,B Antigen - Final Nasal Specimen received for Influenza A/B Molecular testing 05/29/18 22:15 CSF Gram Stain (Tube 3) - Preliminary Cerebral Spinal Fluid Assess/Plan/Problems-Billing Mr Hernandez is a 47 yo M with no PMHx who presented to the ER with severe headache and fever which has been present since last weekend and was identified to have probable viral meningitis. - Patient Problems (1) Viral meningitis Current Visit: Yes Status: Acute Code(s): A87.9 - VIRAL MENINGITIS, UNSPECIFIED SNOMED Code(s): 99366476 Comment: The patient has CSF consistent with likely viral meningitis. Glucose is normal but WBC and protein are high. Additionally the patient appears well. Will continue IV Abx and acyclovir for now and await ID consult and recommendations. Several CSF studies are pending. (2) DVT prophylaxis Current Visit: Yes Status: Acute Code(s): YJV7795 - SNOMED Code(s): 539540055 Comment: ambulation (3) Full code status Current Visit: Yes Status: Acute Code(s): Z78.9 - OTHER SPECIFIED HEALTH STATUS SNOMED Code(s): 889947309
[2018-05-30] MEDS: Vancomycin(*) 1,000 MG in NS 0.9% 250 ML* 250 ML IVPB SCH ×2 (09:42→17:04)
[2018-05-30] MEDS: NS 0.9% 1000 ML* 1,000 ML IV SCH ×2 (09:43→12:15)
[2018-05-30] MEDS: cefTRIAXone(*) 2 GM in NS 0.9% 100 ML* 100 ML IVPB SCH ×2 (12:16→23:40)
[2018-05-31] MEDS: NS 0.9% 1000 ML* 1,000 ML IV SCH (01:32)
[2018-05-31] MEDS: Vancomycin(*) 1,000 MG in NS 0.9% 250 ML* 250 ML IVPB SCH ×2 (01:32→09:57)
[2018-05-31] MEDS: NS 0.9% IVPB SCH ×5 (04:05→14:57)
[2018-05-31] MEDS: DEXAMETHASONE IVPB SCH ×3 (04:05→14:57)
[2018-05-31] MEDS: ACYCLOVIR IVPB SCH ×2 (04:29→11:52)
[2018-05-31 06:27] LABS: EGFR Non-African American 113.4 (>60)
[2018-05-31] MEDS ORDERED: Vancomycin Trough Check NOTE FOLLOW UP ONE (08:30)
[2018-05-31 12:02] VITALS: BP 111/62
[2018-05-31] MEDS: cefTRIAXone(*) 2 GM in NS 0.9% 100 ML* 100 ML IVPB SCH (12:58)
[2018-05-31] MEDS ORDERED: Vancomycin(*) 1,000 MG in NS 0.9% 250 ML* 250 ML IVPB SCH (16:00)
--- NOTE | 2018-05-31 21:03 | CONS ---
CONSULTATION REPORT: DATE OF CONSULT: 05/31/18 REQUESTING PHYSICIAN: Dr. Garza. CONSULTING SERVICE: Infectious Disease. REASON FOR CONSULT: Aseptic meningitis. IMPRESSION: 1. Headache, photophobia, fever after upper respiratory illness with a few days of diarrhea, spinal fluid shows 350 white cells, 66% neutrophils, protein 87, glucose 62, the cerebrospinal fluid cultures are negative. HIV and influenza testing is negative. Blood cultures are negative. He has an aseptic meningitis. He improved rapidly after about a day or so of fluid, pain medicine and treatment here. He was started on vancomycin, ceftriaxone, dexamethasone, acyclovir. He does not spend any time outdoors to speak of. He has had no travel. At this time of the year, I think the most likely cause would be an enterovirus. 2. Ulcerative colitis, on no treatment. 3. PENICILLIN allergy. RECOMMENDATION: We will stop his antibiotics and corticosteroids, add a CSF PCR for enterovirus. He will call if any return of fever, headache, or malaise. HISTORY OF PRESENT ILLNESS: This is a 47-year-old man with ulcerative colitis, who had been well until about a week and a half ago when he developed upper respiratory- type symptoms of fevers, sore throat, fatigue. He had had tonsillitis about a month before, symptoms progressed with worsening headache. He talked to his on- call primary care doctor. They recommended ER evaluation if the headache got worse, it did, and the next day or so with high fever. So, he came to the hospital on 05/29/18. Brain CT was unremarkable. CT of the sinuses was done that showed no fluid collection in the paranasal sinuses. He has had no fever since being admitted. He has had no leukocytosis. He had a CRP of 24 and unremarkable urinalysis. He does not spend any time outdoors. He lives in [place]. 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 PAST MEDICAL HISTORY: Ulcerative colitis. ALLERGIES: To PENICILLIN, unknown reaction. MEDICATIONS: 1. Tylenol. 2. Acyclovir 750 mg every 8 hours. 3. Dexamethasone IV every 6 hours. 4. Ceftriaxone 2 g IV every 12 hours. 5. Vancomycin. SOCIAL HISTORY: He lives in [place] with his girlfriend. No kids. No pets. No time outdoors. FAMILY HISTORY: No recurrent infection. REVIEW OF SYSTEMS: All negative to 14-point review of systems, except as noted above in the history of present illness. PHYSICAL EXAM: Vital Signs: Temperature 36, heart rate 80, respiratory rate 16 , blood pressure 111/62, oxygen saturation 96% on room air. In general, he is awake, not in distress. Neurologic: He is oriented x3, follows all commands. Cranial nerves II through XII are intact. HEENT: There is no conjunctival hemorrhage. Oropharynx without lesions. Neck is supple without mass. There is no nuchal rigidity. Heart has regular rate and rhythm without murmurs, rubs, or gallops. Lungs are clear to auscultation bilaterally. Abdomen: Soft, nontender, nondistended. There are bowel sounds present. Skin: There is no rash or splinter hemorrhage. Musculoskeletal: There is no spine tenderness to palpation. LABORATORY DATA: White blood cell count 40, hemoglobin 13, platelets 210. Creatinine 0.7. CRP 24. Please see impressions and recommendations outlined above, which I have discussed with Dr. Garza. Thanks for asking me to see Mr. Hernandez in consultation. [id number]/[facility] #: [id number] MTDD
--- NOTE | 2018-06-01 13:13 | DS ---
CC: Dr. Elkins * DISCHARGE SUMMARY: DATE OF ADMISSION: 05/30/18 DATE OF DISCHARGE: 05/31/18 PRIMARY CARE PROVIDER: Dr. Elkins. PRINCIPAL DIAGNOSIS: Viral meningitis. SECONDARY DIAGNOSIS: Ulcerative colitis. DISCHARGE MEDICATIONS: Tylenol 650 mg p.o. q.4 hours p.r.n. pain. HOSPITAL COURSE: Mr. Hernandez is a 47-year-old who gives a month long history of feeling unwell with intermittent headaches. The patient ultimately presented to the emergency room on 05/29/18 with complaints of severe headache and fever. Lumbar puncture was performed in the emergency room, which was abnormal with white blood count of 350 in the CSF, normal glucose, and an elevated protein level. The patient was empirically started on IV ceftriaxone, vancomycin, as well as acyclovir. Cultures of the CSF to date are negative. Numerous CSF viral studies are pending including CSF West Nile PCR, herpes simplex PCR, Lyme disease PCR, and enterovirus PCR. The patient was seen by Dr. Connelly on the day of discharge who felt this likely represented viral meningitis and felt that the patient could be discharged home off antibiotics. The patient states that his headache is much improved. He did use Tylenol after admission and had significant improvement in his headache but has not needed any Tylenol since. Overall, the patient states he is feeling much improved. The patient underwent CT of the brain and maxillofacial CT on admission. CT of the brain did not reveal any acute findings and the maxillofacial CT revealed no abnormal fluid collections within the paranasal sinuses. The cribriform plate region appears intact. On the day of discharge, the patient is awake, alert, and oriented, sitting up in bed, in no acute distress. Vital signs are stable. The patient is afebrile. Cardiac exam reveals a normal S1, S2 with a regular rate and rhythm. His lungs are clear. His abdomen is soft, nontender, nondistended. Bowel sounds are present. The patient moves all 4 extremities symmetrically. FOLLOWUP CONCERNS: The patient is being discharged home today on 05/31/18. Activity level is as tolerated. Diet is regular. CONDITION ON DISCHARGE: Stable. The patient is to follow up with Dr. Elkins on 06/07/18 at 2:30 p.m. TIME SPENT: Twenty five minutes were spent discharging this patient. [id number]/[facility] #: [id number] [facility]
[2018-06-01 19:15] LABS: Lyme Disease Source CSF
[2018-06-02] MEDS ORDERED: Vancomycin Trough Check NOTE FOLLOW UP ONE (09:30)
== END 2018-05-31 16:50 | disposition home or self-care (01) ==
LOC: ED 20:19 → MEDTELE 05-30 02:12 → INTOOBSV 05-30 02:12 → UNDOADMOB 05-30 02:12 → OBSVTOIN 05-31 15:53 → INTOOBSV 05-31 15:53 → UNDODISIN 05-31 16:50
PROVIDERS: ADMIT Internal Medicine; ATTEND Hospitalist
DX: A87.9 Viral meningitis, unspecified (principal); K51.90 Ulcerative colitis, unspecified, without complications; G04.90 Encephalitis and encephalomyelitis, unspecified; R51 Headache; R50.9 Fever, unspecified; Z88.0 Allergy status to penicillin
CPT/HCPCS: 36415; 70470; 70487; 71045; 80053; 80202; 81003; 82565; 82945; 83605; 84157; 84520; 85025; 85610; 85730; 86140; 86308; 86703; 87040; 87070; 87205; 87252; 87476; 87529; 87651; 87798; 89051; 90471; 90472; 90686; 96365; 96366; 96375; 96376; 99285; A9270-GY; G0008; G0378; J0133; J0696; J1100; J1885; J2765; J3370; Q9967